=== PATIENT | female | born 1995 | race Caucasian/White ===

== ENCOUNTER 2016-11-18 05:10 | Emergency (ER) | payer SELFPAY ==
--- NOTE | 2016-11-18 05:31 | ED Physician Documentation ---
PD HPI NVD - Stated complaint Stated Complaint: FEVER,VOMITING - Chief complaint Chief Complaint: UTI - History obtained from History obtained from: Patient - History of Present Illness Timing - onset: How many days ago (1-2) Timing - duration: Days Timing - details: Gradual onset, Intermittant Pain level max: 0 Pain level now: 0 Associated symptoms: Dizzy. No: Fever, Abdominal pain Improved by: Laying still Worsened by: Eating Similar symptoms before: Has not had sx before Recently seen: Not recently seen - Additonal information Additional information: patient completed day 2 of seven for UTI abx. presents with N/V, unabke to, tolerate PO Review of Systems Constitutional: reports: Reviewed and negative Cardiac: reports: Reviewed and negative Respiratory: reports: Reviewed and negative GI: reports: Nausea, Vomiting. denies: Abdominal Pain, Constipation, Diarrhea : reports: Dysuria, Frequency PD PAST MEDICAL HISTORY - Past Medical History Past Medical History: No - Past Surgical History Past Surgical History: Yes HEENT: Myringotomy (tubes) - Present Medications Home Medications: Ambulatory Orders Medication Instructions Recorded Confirmed Meclizine HCl 25 mg PO Q6HR PRN #20 tablet 11/18/16 Promethazine [Phenergan] 25 mg PO Q6H PRN #14 tablet 11/18/16 diazePAM [Valium] 5 mg PO TID PRN #14 tablet 11/18/16 - Allergies Allergies/Adverse Reactions: Allergies Allergy/AdvReac Type Severity Reaction Status Date / Time Penicillins Allergy Hives Verified 11/18/16 05:20 - Social History Does the pt smoke?: No Smoking Status: Never smoker Does the pt drink ETOH?: Yes Does the pt have substance abuse?: No - Immunizations Immunizations are current?: Yes - POLST Patient has POLST: No PD ED PE NORMAL - Vitals Vital signs reviewed: Yes - General General: Alert and oriented X 3, No acute distress, Well developed/nourished - HEENT HEENT: Moist mucous membranes - Cardiac Cardiac: RRR, No murmur - Respiratory Respiratory: No respiratory distress, Clear bilaterally - Abdomen Abdomen: Normal bowel sounds, Soft, Non tender, Non distended - Back Back: No CVA TTP - Derm Derm: Normal color, Warm and dry, No rash Results - Vitals Vitals: Oxygen O2 Source Room air - Labs Labs: Laboratory Tests 11/18/16 11/18/16 11/18/16 05:52 05:52 05:59 WBC 13.1 H RBC 5.05 Hgb 14.5 Hct 44.2 MCV 87.6 MCH 28.8 MCHC 32.8 RDW 14.0 Plt Count 367 MPV 8.7 Neut # 8.4 H Lymph # 3.8 H Cloud # 0.7 Eos # 0.1 Baso # 0.1 Absolute Nucleated RBC 0.00 Nucleated RBCs 0.0 Sodium Potassium Chloride Carbon Dioxide Anion Gap BUN Creatinine Estimated GFR (MDRD) Glucose Calcium Total Bilirubin AST ALT Alkaline Phosphatase Total Protein Albumin Globulin Albumin/Globulin Ratio Lipase Urine Color YELLOW Urine Clarity CLEAR Urine pH 6.0 Ur Specific [place] 1.025 1.025 Urine Protein TRACE Urine Glucose (UA) NEGATIVE Urine Ketones NEGATIVE Urine Occult Blood SMALL H Urine Nitrite NEGATIVE Urine Bilirubin NEGATIVE Urine Urobilinogen 0.2 (NORMAL) Ur Leukocyte Esterase NEGATIVE Urine RBC 0-5 Urine WBC 4-5 Ur Squamous Epith Cells RARE Squamous Urine Bacteria Few Urine Mucus Moderate Strands Ur Microscopic Review INDICATED Urine Culture Comments NOT INDICATED Urine HCG, Qual NEGATIVE 11/18/16 05:59 WBC RBC Hgb Hct MCV MCH MCHC RDW Plt Count MPV Neut # Lymph # Cloud # Eos # Baso # Absolute Nucleated RBC Nucleated RBCs Sodium 135 Potassium 3.6 Chloride 102 Carbon Dioxide 20 L Anion Gap 13.0 BUN 15 Creatinine 0.6 Estimated GFR (MDRD) 126 Glucose 120 H Calcium 9.3 Total Bilirubin 0.4 AST 21 ALT 27 Alkaline Phosphatase 70 Total Protein 8.7 H Albumin 4.4 Globulin 4.3 H Albumin/Globulin Ratio 1.0 Lipase 19 L Urine Color Urine Clarity Urine pH Ur Specific [place] Urine Protein Urine Glucose (UA) Urine Ketones Urine Occult Blood Urine Nitrite Urine Bilirubin Urine Urobilinogen Ur Leukocyte Esterase Urine RBC Urine WBC Ur Squamous Epith Cells Urine Bacteria Urine Mucus Ur Microscopic Review Urine Culture Comments Urine HCG, Qual PD MEDICAL DECISION MAKING - ED course Complexity details: reviewed results, re-evaluated patient, considered differential, d/w patient Departure - Departure Disposition: 01 Home, Self Care Clinical Impression: Urinary tract infection, Vertigo Condition: Good Instructions: ED UTI Cystitis Female, ED Vertigo Unspecified Follow-Up: [facility] [Provider Group] [facility] [Provider Group] Prescriptions: Meclizine HCl 25 mg PO Q6HR PRN #20 tablet PRN Reason: Vertigo Promethazine [Phenergan] 25 mg PO Q6H PRN #14 tablet PRN Reason: Nausea / Vomiting diazePAM [Valium] 5 mg PO TID PRN #14 tablet PRN Reason: Vertigo Discharge Date/Time: 11/18/16 09:40
[2016-11-18] MEDS ORDERED: SODIUM CHLORIDE 0.9% 1,000 ML IV STA ×2 (05:52→06:49)
[2016-11-18] MEDS ORDERED: ONDANSETRON 4 MG/2 ML VIAL ONE ×2 (05:52→06:52)
[2016-11-18] MEDS ORDERED: ONDANSETRON 4 MG/2 ML VIAL IVP STA ×2 (05:52→06:50)
[2016-11-18 06:10] LABS: BASOPHILS # (AUTO) 0.1 10^3/uL (0.0-0.1); EOSINOPHILS # (AUTO) 0.1 10^3/uL (0.0-0.7); HGB - HEMOGLOBIN 14.5 g/dL (12.0-16.0); LYMPHOCYTES # (AUTO) 3.8 10^3/uL (1.5-3.5)
[2016-11-18 06:18] LABS: BASOPHILS % (AUTO) 0.6 %; EOSINOPHILS % (AUTO) 0.7 %; HCT - HEMATOCRIT 44.2 % (37.0-47.0); LYMPHOCYTES % (AUTO) 29.1 %; MEAN CORPUSCULAR HEMOGLOBIN 28.8 pg (27.0-31.0); MEAN CORPUSCULAR HGB CONC 32.8 g/dL (32.0-36.0); MEAN CORPUSCULAR VOLUME 87.6 fL (81.0-99.0); MEAN PLATELET VOLUME 8.7 fL (7.9-10.8); MONOCYTES # (AUTO) 0.7 10^3/uL (0.0-1.0); MONOCYTES % (AUTO) 5.3 %; NEUTROPHILS # (AUTO) 8.4 10^3/uL (1.5-6.6); NEUTROPHILS % (AUTO) 64.3 %; RED BLOOD COUNT 5.05 10^6/uL (4.20-5.40); UNCORRECTED WHITE BLOOD COUNT 13.1 x10^3/uL; WHITE BLOOD COUNT 13.1 x10^3/uL (4.8-10.8)
[2016-11-18 06:19] LABS: BILIRUBIN,TOTAL 0.4 mg/dL (0.2-1.0); CALCIUM 9.3 mg/dL (8.5-10.3); CREATININE 0.6 mg/dL (0.4-1.0); POTASSIUM 3.6 mmol/L (3.5-5.0); TOTAL PROTEIN 8.7 g/dL (6.7-8.2)
[2016-11-18 06:22] LABS: HCG UR QUAL NEGATIVE
[2016-11-18 06:23] LABS: BILIRUBIN,URINE NEGATIVE (NEGATIVE); UA w/ MICROSCOPIC CHARGE YES
[2016-11-18] MEDS ORDERED: MECLIZINE 12.5 MG TABLET PO STA ×2 (06:49→07:57)
[2016-11-18] MEDS ORDERED: MECLIZINE 12.5 MG TABLET PO ONE ×2 (06:52→07:57)
[2016-11-18 06:55] LABS: UR CULTURE IF IND NOT INDICATED
[2016-11-18] MEDS ORDERED: diazePAM INJ 5 MG/ML SYRINGE IVP STA (08:26)
[2016-11-18] MEDS ORDERED: PROMETHAZINE INJ 12.5 MG in SODIUM CHLORIDE 0.9% 50 ML IV STA (08:28)
[2016-11-18] MEDS ORDERED: diazePAM INJ 5 MG/ML SYRINGE ONE (08:51)
[2016-11-18] MEDS ORDERED: PROMETHAZINE 25 MG/1 ML VIAL ONE (08:51)
[2016-11-18 09:11] VITALS: BP 132/85
== END 2016-11-18 09:40 | disposition home or self-care (01) ==
LOC: ED 05:10
DX: N39.0 Urinary tract infection, site not specified (principal); R42 Dizziness and giddiness
CPT/HCPCS: 36415; 80053; 81001; 81025; 83690; 85025; 96361; 96365; 96375; 96376; 99284; A9270; 81003; 87086